=== PATIENT | female | born 1970 | race Caucasian/White ===

== ENCOUNTER 2016-08-28 16:46 | Emergency (ER) | payer MEDICAID ==
[~2016-08-28] VITALS: Ht 162.6 cm; Wt 80.0 kg
[2016-08-28] MEDS ORDERED: ONDANSETRON HCL 4MG/2ML VIAL IV ONE (20:15)
[2016-08-28] MEDS ORDERED: MORPHINE SULFATE 4 MG/ML CPJ (NOT FOR IM USE) IV ONE (20:15)
[2016-08-28 20:33] LABS: BASOPHILS % 0.5 % (0.0-2.0); HEMATOCRIT. 39.4 % (36.0-48.0); HEMOGLOBIN. 13.5 g/dL (12.0-16.0); LYMPHOCYTES % 31.6 % (20.0-50.0); MEAN CORPUSCULAR HEMOGLOBIN 32.4 pg (28.0-32.0); MEAN CORPUSCULAR HGB CONC 34.3 g/dL (31.0-37.0); MEAN CORPUSCULAR VOLUME 94.5 fL (81.0-99.0); MEAN PLATELET VOLUME 8.3 fl (7.4-10.4); MONOCYTES % 7.5 % (2.0-8.0); NEUTROPHILS % 58.4 % (40.0-76.0); PLATELET 185 x1000/uL (130-400); RED BLOOD CELL COUNT 4.17 mill/uL (4.2-5.4); RED CELL DISTRIBUTION WIDTH 12.8 % (11.6-14.6); WHITE BLOOD COUNT 8.1 x1000/uL (4.5-11.0)
[2016-08-28 20:39] LABS: PROTHROMBIN TIME 10.1 sec
[2016-08-28 20:44] LABS: HCG SCREEN NEGATIVE
[2016-08-28 20:50] LABS: ALANINE AMINOTRANSFERASE 29 IU/L (13-61); ANION GAP 11; CARBON DIOXIDE 27 mEq/L (21-32); CHLORIDE 108 mEq/L (98-107); INDEX HEMOLYSI 1 (1-3); INDEX ICTERIC 1 (1-4); INDEX LIPEMIC 1 (1-3); NT PRO B-TYPE NATRIURETIC PEP 69 pg/mL (5-125); TROPONIN I < 0.02 ng/mL (0.00-0.04); UREA NITROGEN BLOOD 16 mg/dL (7-21); eGFR > 60 mL/min (>60)
[2016-08-29 00:05] VITALS: BP 103/65
== END 2016-08-29 01:45 | disposition home or self-care (01) ==
LOC: ER 16:47
DX: R07.89 Other chest pain (principal); R42 Dizziness and giddiness; R06.02 Shortness of breath; Z87.891 Personal history of nicotine dependence
CPT/HCPCS: 36415; 71010; 80053; 83880; 84484; 84703; 85025; 85610; 93005; 96374; 96375; 99285; J2270; J2405; Z7610

== ENCOUNTER 2017-08-01 16:40 | Emergency (ER) | payer MEDICAID ==
[~2017-08-01] VITALS: Ht 162.6 cm; Wt 82.0 kg
[2017-08-01 17:10] LABS: BASOPHILS % 0.6 % (0.0-2.0); EOSINOPHILS % 0.9 % (0.0-5.0); HEMATOCRIT. 39.8 % (36.0-48.0); HEMOGLOBIN. 13.9 g/dL (12.0-16.0); LYMPHOCYTES % 39.2 % (20.0-50.0); MEAN CORPUSCULAR HEMOGLOBIN 32.4 pg (28.0-32.0); MEAN CORPUSCULAR VOLUME 92.7 fL (81.0-99.0); MEAN PLATELET VOLUME 8.2 fl (7.4-10.4); MONOCYTES % 5.9 % (2.0-8.0); NEUTROPHILS % 53.4 % (40.0-76.0); PLATELET 207 x1000/uL (130-400); RED BLOOD CELL COUNT 4.29 mill/uL (4.2-5.4); RED CELL DISTRIBUTION WIDTH 12.7 % (11.6-14.6)
[2017-08-01 17:17] LABS: PARTIAL THROMBOPLASTIN TIME 26.4 sec (23.4-31.0)
[2017-08-01 17:20] LABS: CHLORIDE 109 mEq/L (98-107)
[2017-08-01 21:25] VITALS: BP 108/66
[2017-08-01] MEDS ORDERED: NAPROXEN 500MG TABLET PO ONE (21:45)
== END 2017-08-01 23:19 | disposition home or self-care (01) ==
LOC: ER 18:58
DX: R07.89 Other chest pain (principal); G89.29 Other chronic pain; D64.9 Anemia, unspecified; R00.2 Palpitations; R06.02 Shortness of breath
CPT/HCPCS: 36415; 71045; 80053; 81025; 83690; 84484; 85025; 85610; 85730; 93005; 99285

== ENCOUNTER 2018-10-17 09:25 | Emergency (ER) | payer MEDICAID ==
[~2018-10-17] VITALS: Ht 167.6 cm; Wt 84.0 kg
[2018-10-17 09:34] VITALS: BP 114/62
== END 2018-10-17 10:25 | disposition home or self-care (01) ==
LOC: ER 09:25
DX: H72.92 Unspecified perforation of tympanic membrane, left ear (principal); F17.290 Nicotine dependence, other tobacco product, uncomplicated
CPT/HCPCS: 99283

== ENCOUNTER 2022-06-21 07:03 | Emergency (ER) | payer MEDICAID, MEDICARE ==
[~2022-06-21] VITALS: Ht 162.6 cm; Wt 80.0 kg
[2022-06-21] MEDS ORDERED: ACETAMINOPHEN 325MG TABLET PO STA (10:32)
[2022-06-21] MEDS ORDERED: ONDANSETRON 4MG ODT PO STA (10:32)
[2022-06-21 13:13] LABS: CLARITY URINE CLOUDY (CLEAR); COLOR URINE DARK YELLOW (YELLOW); KETONES URINE TRACE (NEGATIVE); LEUKOCYTE ESTERASE URINE 1+ (NEGATIVE); NITRITE URINE POSITIVE (NEGATIVE); OCCULT BLOOD URINE 3+ (NEGATIVE); PH URINE 5.5 (4.5-8.0); PROTEIN URINE 1+ (NEGATIVE); SPECIFIC GRAVITY URINE 1.027 (1.005-1.030)
[2022-06-21] MEDS ORDERED: NAPR-681 PO (13:34)
[2022-06-21] MEDS ORDERED: SULF1TAB48 PO (13:34)
[2022-06-21] MEDS ORDERED: D-ME473S50 PO (13:34)
[2022-06-21 13:53] VITALS: BP 142/74
== END 2022-06-21 13:55 | disposition home or self-care (01) ==
LOC: ER 07:03
DX: J20.9 Acute bronchitis, unspecified (principal); N39.0 Urinary tract infection, site not specified; Z20.822 Contact with and (suspected) exposure to COVID-19
CPT/HCPCS: 71045; 81003; 87077; 87086; 87186; 87426; 87804; 99284; C9803; Q0162